=== PATIENT | male | born 1985 | race Two or more races ===

== ENCOUNTER 2017-03-05 14:41 | Emergency (ER) | payer SELFPAY ==
[2017-03-05 14:47] VITALS: BP 126/75; PULSE 72; TEMP 98.1; BMI 21.1
[2017-03-05] MEDS ORDERED: IBUPROFEN 600 MG TABLET (FP) PO ONE ×2 (15:30→15:33)
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
== END 2017-03-05 16:12 | disposition home or self-care (01) ==
LOC: JERFT 14:41
DX: S16.1XXA Strain of muscle, fascia and tendon at neck level, initial encounter (principal); S39.012A Strain of muscle, fascia and tendon of lower back, initial encounter; V43.52XA Car driver injured in collision with other type car in traffic accident, initial encounter; Y92.414 Local residential or business street as the place of occurrence of the external cause; Y93.89 Activity, other specified
CPT/HCPCS: 72050-TC; 99281-25

== ENCOUNTER 2019-06-23 08:52 | Emergency (ER) | payer OTHER ==
[2019-06-23 09:04] VITALS: BP 109/57; PULSE 66; TEMP 98; BMI 20.4
--- NOTE | 2019-06-23 09:10 | PDOC ---
History of Present Illness - General Chief Complaint: Injury Stated Complaint: Laceration Time Seen by Provider: 06/23/19 09:06 History Source: Patient Exam Limitations: No Limitations Past History - Travel Traveled outside of the country in the last 30 days: No Close contact w/someone who was outside of country & ill: No - Past Medical History Allergies/Adverse Reactions: Allergies Allergy/AdvReac Type Severity Reaction Status Date / Time No Known Allergies Allergy Verified 06/23/19 09:02 Home Medications: Ambulatory Orders Cyclobenzaprine HCl [Flexeril 10 mg] 5 mg PO TID PRN #20 tablet 03/05/17 COPD: No - Suicide/Smoking/Psychosocial Hx Smoking History: Never smoked Hx Alcohol Use: Yes Drug/Substance Use Hx: No Review of Systems - Review of Systems Able to Perform ROS?: Yes Comments:: 06/23/19 09:09 CONSTITUTIONAL: Absent: fever, chills, diaphoresis, generalized weakness, malaise, loss of appetite HEENT: Absent: rhinorrhea, nasal congestion, throat pain, throat swelling, difficulty swallowing, mouth swelling, ear pain, eye pain, visual Changes MUSCULOSKELETAL: Absent: myalgia, arthralgia, joint swelling SKIN: Present: laceration Absent: rash, itching, pallor HEMATOLOGIC/IMMUNOLOGIC: Absent: easy bleeding, easy bruising, lymphadenopathy, frequent infections NEUROLOGIC: Absent: headache, focal weakness or paresthesias, dizziness, unsteady gait, seizure, mental status changes, bladder or bowel incontinence PSYCHIATRIC: Absent: anxiety, depression, suicidal or homicidal ideation, hallucinations. Is the patient limited Uzbek proficient: No *Physical Exam - Vital Signs Last Vital Signs Temp Pulse Resp BP Pulse Ox 98.0 F 66 16 109/57 L 97 06/23/19 09:02 06/23/19 09:02 06/23/19 09:02 06/23/19 09:02 06/23/19 09:02 - Physical Exam Comments: 06/23/19 09:09 GENERAL: Well developed, well nourished. Awake and alert. No acute distress. HEENT: Normocephalic, atraumatic. PERRLA, EOMI. No conjunctival pallor. Sclera are non- icteric. Moist mucous membranes. Oropharynx is clear. NECK: Supple. Full ROM. No JVD. Carotid pulses 2+ and symmetric, without bruits. No thyromegaly. No lymphadenopathy. EXTREMITIES: No cyanosis. No clubbing. No edema. No calf tenderness. SKIN: 5 cm irregular laceration to the mid for head extending to the bridge of the nose. Warm and dry. Normal capillary refill. No rashes. No jaundice. NEUROLOGICAL: Alert, awake, appropriate. Cranial nerves 2-12 intact. No deficits to light touch and temperature in face, upper extremities and lower extremities. No motor deficits in the in face, upper extremities and lower extremities. Normoreflexic in the upper and lower extremities. Normal speech. Toes are down- going bilaterally. Gait is normal without ataxia. PSYCHIATRIC: Cooperative. Good eye contact. Appropriate mood and affect. Procedures - Laceration/Wound Repair Both Medial Face Wound Length: 2.6 to 5.0 cm Wound Explored: clean, no foreign body present Wound's Depth, Shape: irregular Irrigated w/ Saline: Yes Betadine Prep: Yes Anesthesia: 1% Lidocaine Amount of Anesthetic (ccs): 4 Wound Repaired With: Sutures Suture Size/Type: 6:0 Number of Sutures: 10 (simple interrupted) Layer Closure: No Medical Decision Making - Medical Decision Making 06/23/19 09:22 The patient is a 33-year-old male with no past medical history who presents to the ER today for a laceration to his forehead. He states he was playing basketball early this morning when he was elbowed in the face. He states that he also fell to the ground when this happened. He denies losing consciousness. He does not remember the date of his last tetanus shot. Denies fevers, chills, visual changes, double vision, dizziness or lightheadedness. A/P: Laceration On exam patient with a 5 cm laceration to the for head extending to the bridge of the nose. Wound was cleaned under high pressure, no foreign bodies present Tetanus updated 10 simple interrupted sutures placed; see procedure note Discharge home with wound care instructions and to return in 5-7 days to have the stitches removed. I discussed the physical exam findings, ancillary test results and final diagnoses with the patient. I answered all of the patient's questions. The patient was satisfied with the care received and felt comfortable with the discharge plan and treatment plan. The Patient agrees to follow up with the primary care physician/specialist within 24-72 hours. Return precautions were given. *DC/Admit/Observation/Transfer Diagnosis at time of Disposition: Laceration - Discharge Dispostion Disposition: HOME Condition at time of disposition: Stable Decision to Admit order: No - Referrals Referrals: Wai Azar MD [Staff Physician] - - Patient Instructions Printed Discharge Instructions: DI for Laceration Repair Additional Instructions: You had your cut fixed today with stitches. Please return in 5-7 days to have your stitches removed. Your tetanus shot was updated today. Avoid soaking the face. Keep it dry when showering. Please keep the area clean and pat dry. You may use a little bacitracin once a day. You may take Tylenol or Motrin as needed for pain. Follow the manufacture's instructions Return to the emergency department sooner if you have area of redness around the site, purulent drainage, fevers, or have any changes in your symptoms. - Post Discharge Activity
[2019-06-23] MEDS ORDERED: ACETAMINOPHEN 650 MG/20.3 ML ORAL SOLUTION (CUPS) PO ONE (09:20)
[2019-06-23] MEDS ORDERED: DIPHTH,PERTUSS(ACELL),TET 0.5 ML DISP.SYRIN IM ONE ×2 (09:20→09:25)
[2019-06-23] MEDS ORDERED: ACETAMINOPHEN 325 MG TABLET (FP) ONE (09:25)
== END 2019-06-23 10:20 | disposition home or self-care (01) ==
LOC: JERFT 08:52
PROC: 0HQ1XZZ Repair Face Skin, External Approach (ICD-10-PCS; principal; 2019-06-23)
PROC: 3E0234Z Introduction of Serum, Toxoid and Vaccine into Muscle, Percutaneous Approach (ICD-10-PCS; 2019-06-23)
DX: S01.81XA Laceration without foreign body of other part of head, initial encounter (principal); W50.0XXA Accidental hit or strike by another person, initial encounter; Y93.67 Activity, basketball; Y92.310 Basketball court as the place of occurrence of the external cause
CPT/HCPCS: 90715; 99281-25

== ENCOUNTER 2019-07-02 18:52 | Emergency (ER) | payer SELFPAY ==
[2019-07-02 19:05] VITALS: BP 118/78; PULSE 72; TEMP 98.7; BMI 21.1
--- NOTE | 2019-07-02 19:15 | PDOC ---
History of Present Illness - General Chief Complaint: Suture/Staple Removal(Here) Stated Complaint: SUTURE/STAPLE REMOVAL Time Seen by Provider: 07/02/19 19:05 - History of Present Illness Initial Comments: 07/02/19 19:14 33-year-old male presents for suture removal for sutures placed in his face. 10 days ago. He's had no sequelae since. Past History - Past Medical History Allergies/Adverse Reactions: Allergies Allergy/AdvReac Type Severity Reaction Status Date / Time No Known Allergies Allergy Verified 07/02/19 19:01 Home Medications: Ambulatory Orders Cyclobenzaprine HCl [Flexeril 10 mg] 5 mg PO TID PRN #20 tablet 03/05/17 COPD: No - Immunization History Immunization Up to Date: Yes (06/22/19) - Suicide/Smoking/Psychosocial Hx Smoking History: Never smoked Hx Alcohol Use: Yes Drug/Substance Use Hx: No Review of Systems - Review of Systems Constitutional: Yes: See HPI *Physical Exam - Vital Signs Last Vital Signs Temp Pulse Resp BP Pulse Ox 98.7 F 72 18 118/78 99 07/02/19 18:59 07/02/19 18:59 07/02/19 18:59 07/02/19 18:59 07/02/19 18:59 - Physical Exam Comments: 07/02/19 19:13 The wound on the forehead is clean, dry and intact with normal surrounding skin color and temperature Medical Decision Making - Medical Decision Making 07/02/19 19:13 The wound was clean dry and intact with normal skin color and temperature surrounding the wound. Sutures were removed with an [address] flusher driver without complication Steri-Strips/dry sterile dressing was placed. *DC/Admit/Observation/Transfer Diagnosis at time of Disposition: Visit for suture removal - Discharge Dispostion Disposition: HOME Condition at time of disposition: Stable Decision to Admit order: No - Referrals - Patient Instructions Printed Discharge Instructions: DI for Suture Removal - Post Discharge Activity
== END 2019-07-02 19:36 | disposition home or self-care (01) ==
LOC: JERFT 18:52
DX: Z48.02 Encounter for removal of sutures (principal)
CPT/HCPCS: 99281-25